=== PATIENT | female | born 1945 | race Caucasian/White ===

== ENCOUNTER 2017-05-15 10:43 | Day surgery (SDC) | payer MEDICARE, OTHER ==
[~2017-05-15] VITALS: Ht 167.6 cm; Wt 63.0 kg
[~2017-05-15 10:43] MED LIST: CHOL4PAC PO; Lactated Ringer's 1,000 ML IV ONE
[2017-05-15] MEDS ORDERED: Propofol 10,000 mCg/mL 20 mL Inj ONE (10:44)
[2017-05-15] MEDS ORDERED: Glycopyrrolate 0.2 MG/ML 1mL Inj ONE (10:44)
[2017-05-15] MEDS ORDERED: Ketamine 10 mg/mL 20 mL Inj ONE (10:44)
[2017-05-15 10:54] VITALS: BP 153/86; PULSE 79; RESP 14; O2SAT 98
[2017-05-15] MEDS ORDERED: HYDR-656 PO (10:57)
[2017-05-15] MEDS ORDERED: PROC10TA PO (10:57)
[2017-05-15] MEDS ORDERED: PARO30TA4 PO (10:58)
[2017-05-15] MEDS ORDERED: OMEP20CA11 PO (11:01)
--- NOTE | 2017-05-15 11:11 | PCM.HPANE ---
Patient Data Date of Service: May 15, 2017 Surgeon Admitting Provider: Attending Provider:Chay Noyola MD Primary Care Physician:Radha Barrow Other Provider:Hugo Dumont Anesthesia Reason for Visit Diarrhea, Epigastric Pain Ht/WT & BMI Height (Feet): 5 Height (Inches): 6 Weight (Kilograms): 63 Body Mass Index 22.00 Allergies Coded Allergies: No Known Allergies (Unverified , 05/11/17) Past Anesthesia History Anesthesia History: Denies:: Abnormal Airway, Anesthesia Reactions, Difficult Intubation, Fam Anesthesia Reaction, Fam Malignant Hypertherm, Malignant Hyperthermia Diabetes History Hx Diabetes?: No MRSA MRSA: No Medications Hypertension Medication: No Home Meds Incl Beta Tiffanie: No Reported Medications Omeprazole 20 Mg Capsule.dr20 Mg PO DAILY Ref 0 05/15/17 Paroxetine 30 Mg Cevnod98 Mg PO HS 30 Days Ref 0 05/15/17 Prochlorperazine Maleate (Prochlorperazine)10 Mg [id number] Mg PO Q8 PRN For Nausea/Vomiting Ref 0 05/15/17 hydrOXYzine Hcl (HydrOXYzine Hcl)25 Mg Bosnel66 Mg PO HS PRN For Anxiety 05/15/17 Cholestyramine/Aspartame (Cholestyramine Light Packet)4 Gm Powd.pack4 Gm PO DAILY Ref 0 05/11/17 History History of ENT Problems?: Yes HEENT History: Positive for:: Dysphagia Denies:: Abnormal Airway Difficult Intubation Hearing Problem Denture Type: Full- Upper Partial- Lower Teeth Condition: Missing Teeth Hx of Heart Problems?: No Cardiovascular History: Denies:: AICD Atrial Fibrillation Chest Pain Coronary Artery Disease Hypertension Irregular Heartbeat Pacemaker Valvular Heart Disease Other Cardiac History: no FL Hx of Respiratory Problem?: Yes Respiratory History: Positive for:: Asthma (last use albuterol 5mo ago) Use of Inhalers / NEBS Denies:: Pneumonia Tuberculosis Hx Neurologic Problems?: No Neurological History: Denies:: CVA Seizures TIA Hx of GI Problems?: Yes Gastrointestinal History: Positive for:: Gastroesphageal Reflux (occasional) Denies:: Cirrhosis Gastrointestinal Bleeding Liver Disease Rectal Bleeding Other GI Pertinent History: chronic diarrhea Hx of Problems?: No HX of Peritoneal Dialysis: No Female Hx: Denies:: Currently (POST MENOPAUSE) Skin History: Positive for:: History Skin Disorders? (dry skin and been "breaking out" for the past year) Hx Musculoskeletal Problems?: Yes Musculoskeletal History: Positive for:: Osteoarthritis Denies:: Fibromyalgia (SUSPECTED OF ) Joint Replacement Hx of Psycho/Social Problems?: Yes Psycho Social History: Positive for:: Anxiety Hx Depression Hx Surgeries?: Yes (cholecystectomy, umbilical HERNIA, appendicitis) Hx Any Other Health Problems?: Yes Other History: Positive for:: Hospitalization History Blood Transfusions: Positive for:: Accept Blood Products? Blood Transfusions (miscarriage) Denies:: Blood Transfuse Reaction Hx Diabetes: No Hx Alcohol Use: Yes (rare)Hx Substance Use: No Smoking Status: Former Smoker (quit 17 years ago; prior 1ppd; smoke 20+ years off/on) Have You Smoked inLast 12 mo: No Stop/Bang Treated for Sleep Apnea?: No Do You Have a CPAP Machine?: No S-Snoring: Do You Snore Loudly: Yes T-Tired: feel tired, fatigued: Yes O-Obsered: Observed not breath: No P-Blood Pressure: treated: No B- Body Mass Index > 35 kg/m2: No A- Age over 50: Yes N- Neck Large Circumference: No G- Gender Male: No BOBY Total Score: 3 BOBY Risk Assessment: Low Risk, <3 Yes BOBY Category 2: Yes Risk Assessment Category Category 1A: Patient has history of documented sleep apnea, and HAS NOT received any narcotic, sedative or anesthesia administration during this stay. Category 1B: Patient has history of documented sleep apnea, and HAS received any narcotic , sedative or anesthesia administration during this stay Category 2: Patient has SUSPECTED Obstructive Sleep Apnea, and HAS received any narcotic , sedative or anesthesia administration during this stay. Category 3: Patient has SUSPECTED Obstructive Sleep Apnea and HAS NOT received narcotic, sedative or anesthesia administration during this stay. Category 4: Outpatient in Procedural Areas with known sleep apnea or who screen positive for High Risk via the STOP/BANG questionnaire. Exam Exam Vital Signs Vital Signs Date Time Temp Pulse Resp B/P Pulse Ox O2 Delivery O2 Flow Rate FiO2 05/15/17 10:54 36.6 79 14 153/86 98 Room Air General Appearance: Alert, Oriented X3, Cooperative, No Acute Distress HEENT/AIRWAY: MP 2, Neck Movement (from), Mouth Opening (3), Other (tmd<3) Lungs: Diminished Heart: Exam Unremarkable, Regular Rate/Rhythm, Normal S1, Normal S2, No Murmurs /Rubs/Gallops Plan Impression Patient chart reviewed, patient interviewed and anesthestic plan with risks, benefits, and alternatives discussed, and informed consent obtained. NPO per Anesth. Guidelines: Yes ASA Physical Status: ASA2 Mod Systemic Disease Anesthetic Plan: TIVA Bene/Risks/Altern/Consents: Yes HP Complete Prior to Induction: Yes Neymar Flower MD May 15, 2017 11:11
[2017-05-15 11:44] VITALS: BP 120/89; PULSE 100; RESP 18; O2SAT 95
[2017-05-15 11:54] VITALS: BP 108/62; PULSE 98; RESP 20; O2SAT 98
[2017-05-15 12:04] VITALS: BP 102/55; PULSE 86; RESP 16; O2SAT 96
[2017-05-15 12:14] VITALS: BP 107/56; PULSE 84; RESP 16; O2SAT 97
[2017-05-15 12:24] VITALS: BP 124/81; PULSE 82; O2SAT 95
--- NOTE | 2017-05-15 13:26 | ENDO ---
[address] [address] ENDOSCOPY PROCEDURE PATIENT: LUDMILA SPARROW : 1945 MR#: [id number] ADMIT: 05/15/2017 JOB ID: [id number] DATE OF PROCEDURE: 05/15/2017 TYPE OF OPERATION: Esophagogastroduodenoscopy with biopsy. Colonoscopy with biopsy. PREOPERATIVE DIAGNOSIS(ES): Epigastric pain, diarrhea. POSTOPERATIVE DIAGNOSIS(ES): 1. Mild bile reflux. 2. Mild nonerosive gastritis. 3. Sigmoid diverticulosis. ANESTHESIA: Monitored anesthesia care. COMPLICATIONS: None. BLOOD LOSS: Minimal. DESCRIPTION OF PROCEDURE: The risks and benefits explained to the patient. Informed consent was obtained. After anesthesia administered, upper endoscope was inserted into mouth, intubated into esophagus, stomach, second portion of duodenum. Mucosa carefully examined. After procedure was done, the scope withdrawn, procedure terminated. A colonoscope was then inserted from rectum to the terminal ileum and mucosa carefully examined. Prep of the patient was fair. After the procedure done, scope withdrawn, procedure terminated. FINDINGS: Upon inspection of the esophagus, esophagus was normal without masses, ulcers, or lesions. Z-line located at 35 cm from incisors. Upon entering stomach, there was mild bile reflux, mild nonerosive gastritis. No masses, ulcers, or lesions were seen. Retroflexion was normal. Duodenal bulb, first and second portion normal. Biopsy taken of the duodenum, antrum, and body of stomach. Upon inspection of the anus, no masses, hemorrhoids, ulcers, or fissures that were seen. Throughout the entire examination, no polyps, masses or lesions. There was mild sigmoid diverticulosis. Biopsies taken of terminal ileum and random colon. Retroflexion was normal. IMPRESSIONS: 1. Sigmoid diverticulosis, mild. 2. Mild bile reflux. 3. Mild nonerosive gastritis. RECOMMENDATION: Await pathology results. High-fiber diet. Follow up in GI clinic as needed.
--- NOTE | 2017-05-15 15:12 | PCM.ANEP1 ---
Post Anesthesia PACU Phase 1 Assessment Date of Service: May 15, 2017 Vital Signs Vital Signs Date Time Temp Pulse Resp B/P Pulse Ox O2 Delivery O2 Flow Rate FiO2 05/15/17 12:24 82 124/81 95 Room Air 05/15/17 12:14 84 16 107/56 97 Room Air 05/15/17 12:04 86 16 102/55 96 Room Air 05/15/17 11:54 98 20 108/62 98 Room Air 05/15/17 11:44 100 18 120/89 95 Room Air 05/15/17 10:54 36.6 79 14 153/86 98 Room Air Anesthetic Administered: TIVA Level of Alertness: Awake, talking KNIGHT's with Equal Strength: Yes Pain: No Pain Scale Score: 0 Nausea or Vomiting: No CV Function & Hydration Stable: Yes Airway Device: none Oxygen Delivery: Nasal Cannula Lungs: Diminished Summary 05/15/17 12:24 82 124/81 95 Room Air PACU Phase 2 Assessment Complications: No Follow up Care: N/A Patient Instructions Provided: N/A Neymar Flower MD May 15, 2017 15:12
--- NOTE | 2017-05-17 09:17 | PATH ---
SURGICAL PATHOLOGY Attending Physician:Chay Noyola MD CASE STATUS: Signed Out PATIENT NAME: LUDMILA SPARROW PID: [id number] : 1945 DATE COLLECTED:05/15/2017 20:12 SPECIMEN: 1: Duodenum, Biopsy 2: Stomach, Antrum, Biopsy 3: Gastric, Biopsy 4: Ileum, Biopsy 5: Colon, Biopsy CLINICAL HISTORY: DIARRHEA, EPIGASTRIC PAIN 1). DUODENUM BIOPSY 2). ANTRUM BIOPSY 3). GASTRIC BODY BIOPSY 4). TERMINAL ILEUM BIOPSY 5). RANDOM COLON BIOPSY FINAL DIAGNOSIS: 1.DUODENUM, BIOPSY: DUODENAL MUCOSA WITH NO DIAGNOSTIC ABNORMALITY. Negative for active inflammation, features of sprue, dysplasia, and malignancy. 2.STOMACH, ANTRUM, BIOPSY: ANTRAL MUCOSA WITH NO DIAGNOSTIC ABNORMALITY. Negative for Helicobacter organisms. Negative for intestinal metaplasia. Negative for dysplasia and malignancy. 3.STOMACH, BODY, BIOPSY: BODY-TYPE MUCOSA WITH NO DIAGNOSTIC ABNORMALITY. Negative for Helicobacter organisms. Negative for intestinal metaplasia. Negative for dysplasia and malignancy.4.TERMINAL ILEUM, BIOPSY: SMALL BOWEL MUCOSA WITH NO DIAGNOSTIC ABNORMALITY. Negative for active inflammation, dysplasia, and malignancy. 5.RANDOM COLON, BIOPSY: COLONIC MUCOSA WITH NO DIAGNOSTIC ABNORMALITY. Negative for active, chronic and microscopic colitis. Negative for dysplasia and malignancy. ICD10 R19.7 GROSS DESCRIPTION: The specimen is received in five formalin filled containers labeled with the patient's name. 1). The specimen is labeled "duodenum" and consists of 2 portions of tissue which aggregate to 0.3 x 0.2 x 0.2 CM. The specimen is entirely submitted in cassette 1A. 2). The specimen is labeled "antrum" and consists of 2 portions of tissue which aggregate to 0.3 x 0.3 x 0.2 CM. The specimen is entirely submitted in cassette 2A. 3). The specimen is labeled "gastric body" and consists of 2 portions of tissue which aggregate to 0.3 x 0.3 x 0.2 CM. The specimen is entirely submitted in cassette 3A. 4). The specimen is labeled "terminal ileum" some of 2 portions of tissue which aggregate to 0.3 x 0.2 x 0.2 CM. The specimen is entirely submitted in cassette 4A. 5). The specimen is labeled "random colon" and consists of 4 portions of tissue which aggregate to 0.3 x 0.3 x 0.2 CM. The specimen is entirely submitted in cassette 5A. 05/15/2017DC MICRO DESCRIPTION: See diagnosis. ICD-9 CODES: CPT CODES: 1: 40935 2: 73912 3: 96807 4: 50596 5: 23134 Electronically Signed Out Catherine Bustamante MD [facility] Pathology [facility] [address], [place] [address] Technical component performed at [facility], [facility] [address], [place], [address]
== END 2017-05-15 23:59 | disposition home or self-care (01) ==
LOC: END 10:43
PROVIDERS: ATTEND Internal Medicine Gastroenterology
DX: R19.7 Diarrhea, unspecified (principal); K57.30 Diverticulosis of large intestine without perforation or abscess without bleeding; K29.70 Gastritis, unspecified, without bleeding; K21.9 Gastro-esophageal reflux disease without esophagitis; Z86.010 Personal history of colon polyps; Z80.0 Family history of malignant neoplasm of digestive organs; J44.9 Chronic obstructive pulmonary disease, unspecified; Z87.891 Personal history of nicotine dependence
CPT/HCPCS: 43239; 45380; 88305; J2250; J2704; J7120